=== PATIENT | male | born 2000 | race Caucasian/White ===

== ENCOUNTER 2021-02-10 20:39 | Emergency (ER) | payer OTHER ==
[~2021-02-10] VITALS: Ht 190.5 cm; Wt 76.9 kg
[2021-02-10 21:55] LABS: BASO % 0.5 % (0.0-1.0); EOS % 0.4 % (0.0-3.0); HEMATOCRIT 42.1 % (42.0-52.0); HEMOGLOBIN 14.5 g/dl (13.5-17.5); LYMPH # 1.9 10^3/uL (1.5-5.0); LYMPH % 26.2 % (24.0-44.0); MEAN CORPUSCULAR HEMOGLOBIN 29.2 pg (27.0-33.0); MEAN CORPUSCULAR HGB CONC 34.4 g/dl (32.0-36.5); MEAN CORPUSCULAR VOLUME 84.7 fl (80.0-96.0); MONO # 0.6 10^3/uL (0.0-0.8); MONO % 7.7 % (2.0-8.0); NEUTROPHILS # 4.8 10^3/uL (1.5-8.5); NEUTROPHILS % 64.9 % (36.0-66.0); PLATELET COUNT, AUTOMATED 217 10^3/uL (150-450); RED BLOOD COUNT 4.97 10^6/uL (4.30-6.10); WHITE BLOOD COUNT 7.3 10^3/uL (4.0-10.0)
--- NOTE | 2021-02-10 22:08 | REPVR ---
PROCEDURE INFORMATION: Exam: CT Head without Contrast Exam date and time: 02/10/21 (9:18pm) Age: 20 years old Clinical indication: Altered mental status / memory loss. Confusion or disorientation. Head injury 48 hours ago. TECHNIQUE: Imaging protocol: Computed tomography of the head without contrast. Radiation optimization: All CT scans at this facility use at least one of these dose optimization techniques: automated exposure control; mA and/or kV adjustment per patient size (includes targeted exams where dose is matched to clinical indication); or iterative reconstruction. COMPARISON: No relevant prior studies available FINDINGS: Brain: Unremarkable. No acute hemorrhage. Unremarkable white matter. No mass effect. Cerebral ventricles: No ventriculomegaly. Bones/joints: Unremarkable. No acute fracture. Paranasal sinuses: Visualized sinuses are unremarkable. No air-fluid levels. Mastoid air cells: Visualized mastoid air cells are well aerated. Soft tissues: Unremarkable. IMPRESSION: No acute intracranial pathology is appreciated. Electronically signed by: Marti Bassett On 02/10/2021 22:08:22 PM
[2021-02-10 22:29] LABS: OSMOLALITY SERUM 289 MOSM/KG (275-295)
--- NOTE | 2021-02-10 22:36 | REPVR ---
PROCEDURE INFORMATION: Exam: XR Chest Exam date and time: 02/10/21 (9:25pm) Age: 20 years old Clinical indication: Altered mental status TECHNIQUE: Imaging protocol: Frontal CXR Views: 1 view COMPARISON: No relevant prior studies available FINDINGS: Lungs: No consolidation. A few small scattered granulomas. Pleural spaces: Unremarkable. No pleural effusions. No pneumothorax. Heart/Mediastinum: Unremarkable. No cardiomegaly. Bones/joints: Unremarkable. IMPRESSION: No acute findings. Electronically signed by: Marti Bassett On 02/10/2021 22:35:50 PM
[2021-02-10 22:37] LABS: ACETAMINOPHEN LEVEL < 2.0 UG/ML (10.0-30.0); ALBUMIN 4.6 GM/DL (3.2-5.2); ALT/SGPT 16 U/L (12-78); BILIRUBIN,DIRECT 0.2 MG/DL (0.0-0.2); BILIRUBIN,TOTAL 0.6 MG/DL (0.2-1.0); BLOOD UREA NITROGEN 8 MG/DL (7-18); CALCIUM LEVEL 9.7 MG/DL (8.5-10.1); CARBON DIOXIDE LEVEL 27 MEQ/L (21-32); CHLORIDE LEVEL 109 MEQ/L (98-107); CREATININE FOR GFR 0.73 MG/DL (0.70-1.30); ETHYL ALCOHOL (ETHANOL) < 0.003 % (0.000-0.010); GLUCOSE, FASTING 100 MG/DL (70-100); POTASSIUM SERUM 3.7 MEQ/L (3.5-5.1); SALICYLATE LEVEL 3.7 MG/DL (5.0-30.0); SODIUM LEVEL 142 MEQ/L (136-145); THYROID STIMULATING HORMONE 0.827 uIU/ML (0.463-3.98); TOTAL PROTEIN 7.7 GM/DL (6.4-8.2)
[2021-02-10 22:48] LABS: ERYTHROCYTE SEDIMENTATION RATE 2 mm/hr (0-15)
[2021-02-10 23:07] LABS: AMPHETAMINES LEVEL URINE NEGATIVE (NEGATIVE); BARBITURATES URINE NEGATIVE (NEGATIVE); BENZODIAZEPINES URINE NEGATIVE (NEGATIVE); CANNABINOIDS URINE POSITIVE (NEGATIVE); COCAINE METABOLITE URINE NEGATIVE (NEGATIVE); METHADONE URINE NEGATIVE (NEGATIVE); OPIATES URINE NEGATIVE (NEGATIVE); PHENCYCLIDINE URINE NEGATIVE (NEGATIVE)
[2021-02-10 23:37] VITALS: BP 135/72
--- NOTE | 2021-02-11 18:08 | ECGEPIP ---
[facility] - ED Test Date: 2021-02-10 Pat Name: LONA WISEMAN Department: Room: - Gender: Male [employer] Supervisor: : [id number] Requested By: LUIS Live Order Number: [id number] Reading MD: Luis Jackman Measurements Intervals [place] Rate: 52 P: 24 [place]: 126 QRS: 79 QRSD: 116 T: 41 QT: 452 QTc: 420 Interpretive Statements Sinus bradycardia Comparison tracing not on file Electronically Signed on 02-11-2021 18:08:32 EDT by Luis Jackman
== END 2021-02-10 23:39 | disposition home or self-care (01) ==
LOC: M ED 20:39
DX: F15.229 Other stimulant dependence with intoxication, unspecified (principal); F17.210 Nicotine dependence, cigarettes, uncomplicated